=== PATIENT | male | born 1975 | race Asian ===

== ENCOUNTER 2020-11-28 10:06 | Emergency (ER) | payer BC, OTHER ==
[~2020-11-28] VITALS: Ht 165.1 cm; Wt 72.6 kg
[2020-11-28 10:16] VITALS: BP 143/87
[2020-11-28] MEDS ORDERED: KETOROLAC TROMETHAMINE INJ 60 MG/2 ML VIAL IM ONE ×2 (10:24→10:30)
[2020-11-28] MEDS ORDERED: DEXAMETHASONE SOD PHOSPHATE 10 MG/ML VIAL ONE (10:24)
[2020-11-28] MEDS ORDERED: DEXAMETHASONE SOD PHOSPHATE 10 MG/ML VIAL IM ONE (10:30)
[2020-11-28] MEDS ORDERED: AMOX-430 PO (11:16)
[2020-11-28] MEDS ORDERED: IBUP-1957 PO (11:16)
[2020-11-28] MEDS ORDERED: METH4TAB3 PO (11:16)
--- NOTE | 2020-11-28 11:30 | NUR ---
Patient discharged to home in stable condition. Written and verbal after care instructions given. Patient verbalizes understanding of instruction.
--- NOTE | 2020-11-28 11:32 | NUR ---
Patient discharged to home in stable condition. Written and verbal after care instructions given. Patient verbalizes understanding of instruction.
== END 2020-11-28 11:32 | disposition home or self-care (01) ==
LOC: ER 10:13
DX: J32.9 Chronic sinusitis, unspecified (principal); Z79.899 Other long term (current) drug therapy
CPT/HCPCS: 96372 ×2; 99284; J1100; J1885